=== PATIENT | female | born 1970 | race Caucasian/White ===

== ENCOUNTER 2018-06-30 16:50 | Emergency (ER) | payer OTHER, MEDICAID ==
[~2018-06-30] VITALS: Ht 154.9 cm; Wt 59.6 kg
[2018-06-30] MEDS ORDERED: ALBUTEROL2.5 MG/31 INH (16:58)
[2018-06-30 17:36] LABS: WBC 6.5 thou/uL (4.0-11.0)
[2018-06-30 17:37] LABS: HEMATOCRIT 39.6 % (37.0-47.0); HEMOGLOBIN 13.2 gm/dL (12.0-15.0); MCH 26.5 pg (26.0-34.0); MCHC 33.5 g/dL (28.0-37.0); MCV 79.2 fL (80.0-100.0); MPV 7.8 fl. (7.2-11.1); NUCLEATED RBCS 0 /100WBC; PLATELET COUNT* 226 thou/uL (150-400); RBC 4.99 mil/uL (4.20-5.00); RDW-CV 13.8 % (10.5-14.5)
[2018-06-30 17:54] LABS: ANION GAP 10 mmol/L (7-16); BUN 10 mg/dL (7-18); CALCIUM 8.4 mg/dL (8.5-10.1); CHLORIDE 104 mmol/L (98-107); CO2 26 mmol/L (21-32); CREATININE 0.6 mg/dL (0.6-1.3); GLUCOSE 106 mg/dL (70-99); POTASSIUM 3.7 mmol/L (3.5-5.1); SODIUM 140 mmol/L (136-145); TROPONIN-I LEVEL <0.06 ng/mL (<0.06)
[2018-06-30 17:56] LABS: ABSOLUTE EOSINOPHILS 0.1 thou/uL (0.0-0.7); ABSOLUTE LYMPHOCYTES 0.5 thou/uL (0.8-5.3); ABSOLUTE MONOCYTES 0.2 thou/uL (0.0-1.2); ABSOLUTE NEUTROPHILS 5.8 thou/uL (1.6-8.1); PLATELET ESTIMATE ADEQUATE
[2018-06-30 17:57] LABS: ALBUMIN 3.7 g/dL (3.4-5.0); ALKALINE PHOSPHATASE 61 U/L (46-116); SGOT 19 U/L (15-37); SGPT 24 U/L (30-65); TOTAL BILIRUBIN 0.3 mg/dL (<0.1-1.0); TOTAL PROTEIN 7.2 g/dL (6.4-8.2)
[2018-06-30] MEDS ORDERED: ANTIVERT25 MG PO (18:35)
[2018-06-30] MEDS ORDERED: ZOFRAN ODT4 MG PO (18:35)
[2018-06-30 18:41] VITALS: BP 102/66
--- NOTE | 2018-07-01 10:44 | EKG ---
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
== END 2018-06-30 18:42 | disposition home or self-care (01) ==
LOC: M.ERS 16:50
PROVIDERS: Nurse Practitioner Family
DX: R20.2 Paresthesia of skin (principal); R42 Dizziness and giddiness; J45.909 Unspecified asthma, uncomplicated; Z88.2 Allergy status to sulfonamides

== ENCOUNTER 2018-07-30 15:45 | Emergency (ER) | payer OTHER, MEDICAID ==
[~2018-07-30] VITALS: Ht 154.9 cm; Wt 59.0 kg
[~2018-07-30 15:45] MED LIST: ALBUTEROL2.5 MG/31 INH; ANTIVERT25 MG PO; ZOFRAN ODT4 MG PO
[2018-07-30 16:28] LABS: ABSOLUTE EOSINOPHILS 0.1 thou/uL (0.0-0.7); ABSOLUTE LYMPHOCYTES 1.5 thou/uL (0.8-5.3); ABSOLUTE MONOCYTES 0.2 thou/uL (0.0-1.2); ABSOLUTE NEUTROPHILS 3.3 thou/uL (1.6-8.1); BASOPHILS 0.7 %; EOSINOPHILS 2.7 %; HEMATOCRIT 39.5 % (37.0-47.0); HEMOGLOBIN 12.8 gm/dL (12.0-15.0); LYMPHOCYTES 28.1 %; MCH 26.2 pg (26.0-34.0); MCHC 32.6 g/dL (28.0-37.0); MCV 80.4 fL (80.0-100.0); MONOCYTES 4.6 %; NUCLEATED RBCS 0 /100WBC; PLATELET COUNT* 226 thou/uL (150-400); POLYS 63.9 %; RBC 4.91 mil/uL (4.20-5.00); RDW-CV 13.6 % (10.5-14.5); WBC 5.2 thou/uL (4.0-11.0)
[2018-07-30 16:28] LABS: URINE BILIRUBIN NEGATIVE (Negative); URINE BLOOD NEGATIVE (Negative); URINE CLARITY CLEAR; URINE COLOR YELLOW; URINE GLUCOSE-RANDOM NEGATIVE (Negative); URINE KETONES NEGATIVE (Negative); URINE LEUKOCYTES-REFLEX TRACE (Negative); URINE NITRITE-REFLEX NEGATIVE (Negative); URINE PROTEIN NEGATIVE (Negative); URINE SPECIFIC GRAVITY 1.015 (1.005-1.030); URINE UROBILINOGEN 0.2 E.U./dl (0.2-1.0)
[2018-07-30 16:40] LABS: MUCUS 0-3 Light strn/LPF (None Seen); SQUAMOUS >10 Many /LPF (0-3)
[2018-07-30 16:41] LABS: CASTS None Seen /LPF (None Seen); URINE WBC-REFLEX 0-5 Rare /HPF (0-5)
[2018-07-30 16:42] LABS: AMORPHOUS PHOSPHATES Many /LPF (None Seen); BACTERIA-REFLEX 1-9 Few /HPF (None Seen); URINE RBC None Seen /HPF (0-2)
[2018-07-30 16:50] LABS: ALBUMIN 3.7 g/dL (3.4-5.0); ALKALINE PHOSPHATASE 59 U/L (46-116); ANION GAP 5 mmol/L (7-16); BUN 9 mg/dL (7-18); CALCIUM 8.7 mg/dL (8.5-10.1); CHLORIDE 105 mmol/L (98-107); CO2 30 mmol/L (21-32); CREATININE 0.7 mg/dL (0.6-1.3); GLUCOSE 134 mg/dL (70-99); LIPASE 103 U/L (73-393); POTASSIUM 3.8 mmol/L (3.5-5.1); SGOT 12 U/L (15-37); SGPT 19 U/L (30-65); SODIUM 140 mmol/L (136-145); TOTAL BILIRUBIN 0.2 mg/dL (<0.1-1.0); TOTAL PROTEIN 7.6 g/dL (6.4-8.2); TROPONIN-I LEVEL <0.06 ng/mL (<0.06)
[2018-07-30] MEDS ORDERED: MIRALAX17 GM PO (18:15)
[2018-07-30] MEDS ORDERED: ACETAMINOPHEN-1 EAC1 PO (18:15)
[2018-07-30] MEDS ORDERED: HYDROCORTISONE30 G9 RECTAL (18:29)
[2018-07-30 18:30] VITALS: BP 106/66
== END 2018-07-30 18:35 | disposition home or self-care (01) ==
LOC: M.ERS 15:45
PROVIDERS: Physician Assistant
DX: K64.4 Residual hemorrhoidal skin tags (principal); J45.909 Unspecified asthma, uncomplicated

== ENCOUNTER 2018-10-26 18:24 | Emergency (ER) | payer OTHER, MEDICAID ==
[~2018-10-26] VITALS: Ht 154.9 cm; Wt 55.8 kg
[~2018-10-26 18:24] MED LIST changes: +ACETAMINOPHEN-1 EAC1 PO; +HYDROCORTISONE30 G9 RECTAL; +MIRALAX17 GM PO
[2018-10-26 18:51] LABS: URINE BILIRUBIN NEGATIVE (Negative); URINE BLOOD NEGATIVE (Negative); URINE CLARITY CLEAR; URINE COLOR YELLOW; URINE GLUCOSE-RANDOM NEGATIVE (Negative); URINE KETONES NEGATIVE (Negative); URINE LEUKOCYTES-REFLEX NEGATIVE (Negative); URINE NITRITE-REFLEX NEGATIVE (Negative); URINE PROTEIN NEGATIVE (Negative); URINE UROBILINOGEN 0.2 E.U./dl (0.2-1.0)
[2018-10-26 19:25] LABS: ABSOLUTE EOSINOPHILS 0.2 thou/uL (0.0-0.7); ABSOLUTE LYMPHOCYTES 1.7 thou/uL (0.8-5.3); ABSOLUTE MONOCYTES 0.4 thou/uL (0.0-1.2); ABSOLUTE NEUTROPHILS 3.8 thou/uL (1.6-8.1); BASOPHILS 0.4 %; EOSINOPHILS 3.3 %; LYMPHOCYTES 28.2 %; MCH 26.3 pg (26.0-34.0); MCHC 33.4 g/dL (28.0-37.0); MCV 78.8 fL (80.0-100.0); MONOCYTES 6.5 %; MPV 8.6 fl. (7.2-11.1); NUCLEATED RBCS 0 /100WBC; PLATELET COUNT* 228 thou/uL (150-400); POLYS 61.6 %; RBC 4.56 mil/uL (4.20-5.00); RDW-CV 13.4 % (10.5-14.5); WBC 6.2 thou/uL (4.0-11.0)
[2018-10-26 19:28] LABS: CALCIUM 8.8 mg/dL (8.5-10.1); CREATININE 0.5 mg/dL (0.6-1.3); POTASSIUM 3.9 mmol/L (3.5-5.1)
[2018-10-26 19:33] LABS: ALBUMIN 3.6 g/dL (3.4-5.0); TOTAL BILIRUBIN 0.2 mg/dL (<0.1-1.0); TOTAL PROTEIN 7.1 g/dL (6.4-8.2)
[2018-10-26] MEDS ORDERED: COLACE100 MG PO (20:54)
[2018-10-26] MEDS ORDERED: CITRATE OF MAG296 ML PO (20:54)
[2018-10-26] MEDS ORDERED: MIRALAX17 GM PO (20:54)
[2018-10-26 21:08] VITALS: BP 113/72
== END 2018-10-26 21:10 | disposition home or self-care (01) ==
LOC: M.ERS 18:24
PROVIDERS: Physician Assistant
DX: N83.202 Unspecified ovarian cyst, left side (principal); K59.00 Constipation, unspecified; J45.909 Unspecified asthma, uncomplicated; Z88.2 Allergy status to sulfonamides

== ENCOUNTER 2020-10-12 18:08 | Emergency (ER) | payer OTHER, MEDICAID ==
[~2020-10-12] VITALS: Ht 157.5 cm; Wt 56.7 kg
[~2020-10-12 18:08] MED LIST changes: +CITRATE OF MAG296 ML PO; +COLACE100 MG PO
[2020-10-12] MEDS ORDERED: IBUPROFEN 600600 M1 PO (18:20)
[2020-10-12 18:39] LABS: ABSOLUTE BASOPHILS 0.1 thou/uL (0.0-0.2); ABSOLUTE EOSINOPHILS 0.2 thou/uL (0.0-0.7); ABSOLUTE LYMPHOCYTES 1.7 thou/uL (0.8-5.3); ABSOLUTE MONOCYTES 0.3 thou/uL (0.0-1.2); BASOPHILS 1.4 %; EOSINOPHILS 4.3 %; HEMATOCRIT 37.3 % (37.0-47.0); HEMOGLOBIN 12.7 gm/dL (12.0-15.0); LYMPHOCYTES 31.2 %; MCH 27.1 pg (26.0-34.0); MCV 79.6 fL (80.0-100.0); MONOCYTES 6.2 %; MPV 7.7 fl. (7.2-11.1); NUCLEATED RBCS 0 /100WBC; PLATELET COUNT* 265 thou/uL (150-400); POLYS 56.9 %; RBC 4.68 mil/uL (4.20-5.00); RDW-CV 13.1 % (10.5-14.5); WBC 5.3 thou/uL (4.0-11.0)
[2020-10-12 18:40] LABS: URINE BILIRUBIN NEGATIVE (Negative); URINE BLOOD 1+ (Negative); URINE CLARITY CLEAR; URINE COLOR YELLOW; URINE GLUCOSE-RANDOM NEGATIVE (Negative); URINE KETONES TRACE (Negative); URINE LEUKOCYTES-REFLEX NEGATIVE (Negative); URINE NITRITE-REFLEX NEGATIVE (Negative); URINE PROTEIN NEGATIVE (Negative); URINE SPECIFIC GRAVITY >= 1.030 (1.005-1.030); URINE UROBILINOGEN 0.2 E.U./dl (0.2-1.0)
[2020-10-12 18:46] LABS: CASTS None Seen /LPF (None Seen); MUCUS 4-6 Moderate strn/LPF (None Seen); SQUAMOUS 4-10 Moderate /LPF (0-3)
[2020-10-12 18:47] LABS: CALCIUM 8.6 mg/dL (8.5-10.1); CREATININE 0.6 mg/dL (0.6-1.3); POTASSIUM 3.8 mmol/L (3.5-5.1)
[2020-10-12 18:47] LABS: BACTERIA-REFLEX None Seen /HPF (None Seen); CALCIUM OXALATE 4-10 Moderate /LPF (None Seen); URINE RBC 3-10 Few /HPF (0-2); URINE WBC-REFLEX 0-5 Rare /HPF (0-5)
[2020-10-12 18:52] LABS: ALBUMIN 3.5 g/dL (3.4-5.0); TOTAL BILIRUBIN 0.1 mg/dL (<0.1-1.0); TOTAL PROTEIN 7.5 g/dL (6.4-8.2)
[2020-10-12] MEDS ORDERED: NAPROSYN500 MG PO (20:56)
[2020-10-12] MEDS ORDERED: NORCO5 PO ×2 (20:56→21:18)
[2020-10-12 21:33] VITALS: BP 139/79
== END 2020-10-12 21:34 | disposition home or self-care (01) ==
LOC: M.ERS 18:08
PROVIDERS: Physician Assistant
DX: N93.9 Abnormal uterine and vaginal bleeding, unspecified (principal); R10.30 Lower abdominal pain, unspecified; J45.909 Unspecified asthma, uncomplicated; Z88.2 Allergy status to sulfonamides